=== PATIENT | female | born 1980 | race Hispanic/Latino ===

== ENCOUNTER 2018-07-27 08:41 | Inpatient (IN) | payer BC, MEDICAID ==
[2018-07-27] MEDS ORDERED: SUBLIMAZE IV PRN (09:16)
--- NOTE | 2018-07-27 09:32 | History and Physical Report ---
History of Present Illness Date of examination: 07/27/18 (pt presents for IOL due to IUGR @ 39 weeks) Date of admission: 07/27/18 08:43 History of present illness: EDC Confirmation: 08/01/2018 Gestational Age: 12 1/7 weeks Past History : 4 Term Births: 3 Living Children: 3 Para: 3 Mult. Births: 0 Prev : 0 Aborta: 0 Elect. Ab: 0 Spont. Ab: 0 Ectopics: 0 # 1 Delivery date: 12/13/2004 Weeks Gestation: 39 labor: no Delivery type: Hours of labor: >20 Anesthesia type: epidural Delivery location: [facility] Infant Sex: Female weight: 6-4 Name: Alyssa Comments: PPH after she went home; blood transfusion # 2 Delivery date: 11/13/2010 Weeks Gestation: 40 Delivery type: Vaginal Hours of labor: >30 Anesthesia type: epidural Delivery location: [facility] Sex: male weight: 6.63 Name: Misael Comments: none # 3 Delivery date: 02/15/2013 Weeks Gestation: 39+4 Delivery type: Vaginal Anesthesia type: epidural Delivery location: [facility] Infant Sex: female Comments: IUGR, oligohydramnios, ?partial abruption Risk Factors: Smoked Tobacco Use: Current every day smoker Counseled to quit/cut down: yes Drug use: no HIV high-risk behavior: low risk Alcohol use: no Seatbelt use: 100 % Dietary Counseling: pn yes PAP Smear History: Date of Last PAP Smear: 01/03/2013 Results: abnormal Past Medical History: Reviewed history from 06/28/2012 and no changes required: Negative Past Medical History Blood Transfusion after first delivery Past Surgical History: Reviewed history from 03/20/2010 and no changes required: negative Past Medical History Blood Transfusions: yes Abnormal PAP: negative KRISTIN Exposure: negative Infertility: negative Uterine Anomaly: negative Uterine Surgery (not C/S): negative Other Gynecologic Problems: negative Social Hx: Patient is Infection History Hx of STD: none HIV Risk Eval: low risk Hepatitis B Risk Eval: low risk Personal hx. of genital herpes: no Partner hx. of genital herpes: no Rash, Viral, or Febrile illness since last LMP? no Varicella/Chicken Pox Status: Unknown TB Risk: no Genetic History ADVANCED MATERNAL AGE Congenital Heart Defect: Mom: no Dad: no Monalisa Disease: Mom: no Dad: no Thalassemia Mom: no Dad: no Neural Tube Defect Mom: no Dad: no Down's Syndrome Mom: no Dad: no Thor-Sachs Mom: no Dad: no Sickle Cell Disease/Trait Mom: no Dad: no Hemophilia Mom: no Dad: no Muscular Dystrophy Mom: no Dad: no Cystic Fibrosis Mom: no Dad: no Jeir Chorea Mom: no Dad: no Mental Retardation Mom: no Dad: no Fragile X Mom: no Dad: no Other Genetic/Chromosomal Disorder Mom: no Dad: no Child w/other defect Mom: no Dad: no Other: FOB neices have [employer] Enviromental Exposures Xray Exposure: no Medication, drug, or alcohol use since LMP: no Chemical/Other Exposure: no Exposure to Cat Liter: no Hx of Parvovirus (Fifth Disease): no Active Medications (reviewed today): DEPO-PROVERA 150 MG/ML INTRAMUSCULAR SUSPENSION (MEDROXYPROGESTERONE ACETATE) 1 inj x every 12 weeks DEPO-PROVERA 150 MG/ML INTRAMUSCULAR SUSPENSION (MEDROXYPROGESTERONE ACETATE) 1 inj x every 12 weeks DEPO PROVERA INJ () Current Allergies (reviewed today): * NKDA (Critical) Past History - Obstetrical History Expected Date of Delivery: 08/01/18 Actual Gestation: 39 Week(s) 2 Day(s) : 4 Para: 3 Hx # Term Pregnancies: 3 Number of Pregnancies: 0 Spontaneous Abortions: 0 Induced : 0 Number of Living Children: 3 Medications and Allergies Allergies Allergy/AdvReac Type Severity Reaction Status Date / Time No Known Allergies Allergy Unverified 07/27/18 09:56 Active Meds: Active Medications Ephedrine Sulfate (Ephedrine Sulfate) 10 mg IV Q2M PRN PRN Reason: Hypotension Fentanyl (Sublimaze) 100 mcg IV Q2H PRN PRN Reason: Labor Pain Lactated Ringer's (Lactated Ringers) 1,000 mls @ 125 mls/hr IV DIRECT BRAYDEN Oxytocin/Sodium Chloride (Pitocin/Ns 20 Unit/1000ml Drip) 20 units in 1,000 mls @ 125 mls/hr IV DIRECT BRAYDEN Oxytocin/Sodium Chloride (Pitocin/Ns 30 Unit/500ml) 30 units in 500 mls @ 4 mls /hr IV Q30MIN BRAYDEN; Protocol Lidocaine (Xylocaine 2%) 20 ml INFILTRATI ONCE ONE Stop: 07/27/18 09:17 Mineral Oil (Mineral Oil) 30 ml PO QHS PRN PRN Reason: Constipation Ondansetron HCl (Zofran) 4 mg IV Q8H PRN PRN Reason: Nausea And Vomiting Terbutaline Sulfate (Brethine) 0.25 mg SUB-Q ONCE PRN PRN Reason: Hyperstimulation/Hypertonicity - Vital Signs Vital signs: Vital Signs Pulse Pulse Ox 66 98 07/27/18 09:00 07/27/18 09:00 Temp Pulse Resp BP Pulse Ox 68 117/63 98 07/27/18 09:15 07/27/18 09:15 07/27/18 09:15 - Physical Exam Breasts: Positive: deferred Cardiovascular: Regular rate, Normal S1, Normal S2 Lungs: Positive: Normal air movement Abdomen: Positive: normal appearance, soft, normal bowel sounds. Negative: distention, tenderness Genitourinary (Female): Positive: normal external genitalia Vulva: both: normal Vagina: Positive: normal moisture. Negative: discharge Cervix: Negative: lesion, discharge Uterus: Positive: normal size, normal contour Adnexa: both: normal Anus/Rectum: Positive: normal perianal skin, heme negative. Negative: rectal mass, hemorrhoids Extremities: Positive: normal Deep Tendon Reflex Grade: Normal +2 - Obstetrical FHR: category 1 Uterine Contraction Monitor Mode: External Cervical Dilatation: 3 (per RN exam) Cervical Effacement Percentage: 50 station: -3 Uterine Contraction Pattern: Irregular Uterine Contraction Intensity: Mild Results Result Diagrams: 07/27/18 09:15 All other labs normal. HBsAg Screen Negative Negative *1 RPR Non Reactive Non Reactive *2 Rubella Antibodies, IgG 7.46 index Immune >0.99 *3 Non-immune <0.90 Equivocal 0.90 - 0.99 Immune >0.99 ABO Grouping O Rh Factor Negative *5 Please note: Prior records for this patient's ABO / Rh type are not available for additional verification. Antibody Screen Negative Negative *6 WBC [H] 13.7 x10E3/uL 3.4-10.8 *7 RBC [L] 3.54 x10E6/uL 3.77-5.28 *8 Hemoglobin [L] 10.8 g/dL 11.1-15.9 *9 Hematocrit [L] 31.2 % 34.0-46.6 *10 MCV 88 fL 79-97 *11 MCH 30.5 pg 26.6-33.0 *12 MCHC 34.6 g/dL 31.5-35.7 *13 RDW 13.4 % 12.3-15.4 *14 Platelets 356 x10E3/uL 150-379 *15 Neutrophils 79 % Not Estab. *16 Lymphs 16 % Not Estab. *17 Monocytes 4 % Not Estab. *18 Eos 1 % Not Estab. *19 Basos 0 % Not Estab. *20 ! Immature Cells <No Reported Value> *21 Neutrophils (Absolute) [H] 10.7 x10E3/uL 1.4-7.0 *22 Lymphs (Absolute) 2.2 x10E3/uL 0.7-3.1 *23 Monocytes(Absolute) 0.6 x10E3/uL 0.1-0.9 *24 Eos (Absolute) 0.1 x10E3/uL 0.0-0.4 *25 Baso (Absolute) 0.0 x10E3/uL 0.0-0.2 *26 ! Immature Granulocytes 0 % Not Estab. *27 ! Immature Grans (Abs) 0.0 x10E3/uL 0.0-0.1 *28 ! NRBC <No Reported Value> *29 Hematology Comments: <No Reported Value> *30 Tests: (2) SMN1 Copy Number Analysis ([id number]) ! Genetic Counselor: Not applicable *31 ! Client Specimen ID: Not applicable *32 ! Specimen Type: SPRCS *33 Peripheral Blood Tests: (3) Panel 008820 ([id number]) HIV Screen 4th Generation wRfx Non Reactive Non Reactive *45 Tests: (4) HCV Ab w/Rflx to Verification ([id number]) ! HCV Ab <0.1 s/co ratio 0.0-0.9 *46 Tests: (5) Comment: ([id number]) ! Comment: SPRCS *47 Non reactive HCV antibody screen is consistent with no HCV infection, unless recent infection is suspected or other evidence exists to indicate HCV infection. Tests: (6) Urine Culture, Routine ([id number]) Urine Culture, Routine Final report *48 Tests: (7) Result ([id number]) ! Result 1 MUG *49 Mixed urogenital vic 10,000-25,000 colony forming units per mL Assessment and Plan 38yo @ 39 weeks for IOL as per AMFM due to IUGR GBS negative Orders in EMR
[2018-07-27 09:34] LABS: Hematocrit 33.2 % (30.3-42.9); Hemoglobin 11.5 gm/dl (10.1-14.3); Mean Corpuscular HGB Conc 35 % (30-34); Mean Corpuscular Hemoglobin 32 pg (28-32); Mean Corpuscular Volume 93 fl (79-97); Platelet Count 196 K/mm3 (140-440); Red Blood Count 3.57 M/mm3 (3.65-5.03); Red Cell Distribution Width 13.3 % (13.2-15.2)
[2018-07-27] MEDS: LACTATED RINGERS 1,000 ML IV SCH ×3 (10:00→14:40)
[2018-07-27] MEDS ORDERED: PITOCin/NS 20 UNIT/1000ML DRIP 20 UNITS/1,000 ML BAG IV SCH (10:00)
[2018-07-27] MEDS ORDERED: BRETHINE SUB-Q PRN (10:30)
[2018-07-27] MEDS ORDERED: ZOFRAN IV PRN (10:30)
[2018-07-27] MEDS: PITOCin/NS 30 UNIT/500ML 30 UNITS/500 ML BAG IV SCH ×4 (10:30→12:42)
[2018-07-27] MEDS ORDERED: XYLOCAINE 2% INFILTRATI ONE (10:30)
--- NOTE | 2018-07-27 11:45 | Progress Note ---
Assessment and Plan Bolus for epidural Sve 4,70,-1 ROM clear Internals placed Re-eval after epidural Subjective - Subjective Date of service: 07/27/18 (pt asking for epidural) Interval history: EDC Confirmation: 08/01/2018 Gestational Age: 12 1/7 weeks Past History : 4 Term Births: 3 Living Children: 3 Para: 3 Mult. Births: 0 Prev : 0 Aborta: 0 Elect. Ab: 0 Spont. Ab: 0 Ectopics: 0 # 1 Delivery date: 12/13/2004 Weeks Gestation: 39 labor: no Delivery type: Hours of labor: >20 Anesthesia type: epidural Delivery location: [facility] Sex: Female weight: 6-4 Name: Alyssa Comments: PPH after she went home; blood transfusion # 2 Delivery date: 11/13/2010 Weeks Gestation: 40 Delivery type: Vaginal Hours of labor: >30 Anesthesia type: epidural Delivery location: [facility] Infant Sex: male weight: 6.63 Name: Misael Comments: none # 3 Delivery date: 02/15/2013 Weeks Gestation: 39+4 Delivery type: Vaginal Anesthesia type: epidural Delivery location: [facility] Sex: female Comments: IUGR, oligohydramnios, ?partial abruption Risk Factors: Smoked Tobacco Use: Current every day smoker Counseled to quit/cut down: yes Drug use: no HIV high-risk behavior: low risk Alcohol use: no Seatbelt use: 100 % Dietary Counseling: pn yes PAP Smear History: Date of Last PAP Smear: 01/03/2013 Results: abnormal Past Medical History: Reviewed history from 06/28/2012 and no changes required: Negative Past Medical History Blood Transfusion after first delivery Past Surgical History: Reviewed history from 03/20/2010 and no changes required: negative Past Medical History Blood Transfusions: yes Abnormal PAP: negative KRISTIN Exposure: negative Infertility: negative Uterine Anomaly: negative Uterine Surgery (not C/S): negative Other Gynecologic Problems: negative Social Hx: Patient is Infection History Hx of STD: none HIV Risk Eval: low risk Hepatitis B Risk Eval: low risk Personal hx. of genital herpes: no Partner hx. of genital herpes: no Rash, Viral, or Febrile illness since last LMP? no Varicella/Chicken Pox Status: Unknown TB Risk: no Genetic History ADVANCED MATERNAL AGE Congenital Heart Defect: Mom: no Dad: no Monalisa Disease: Mom: no Dad: no Thalassemia Mom: no Dad: no Neural Tube Defect Mom: no Dad: no Down's Syndrome Mom: no Dad: no Thor-Sachs Mom: no Dad: no Sickle Cell Disease/Trait Mom: no Dad: no Hemophilia Mom: no Dad: no Muscular Dystrophy Mom: no Dad: no Cystic Fibrosis Mom: no Dad: no Floyd Chorea Mom: no Dad: no Mental Retardation Mom: no Dad: no Fragile X Mom: no Dad: no Other Genetic/Chromosomal Disorder Mom: no Dad: no Child w/other defect Mom: no Dad: no Other: FOB neices have Von [employer] Enviromental Exposures Xray Exposure: no Medication, drug, or alcohol use since LMP: no Chemical/Other Exposure: no Exposure to Cat Liter: no Hx of Parvovirus (Fifth Disease): no Active Medications (reviewed today): DEPO-PROVERA 150 MG/ML INTRAMUSCULAR SUSPENSION (MEDROXYPROGESTERONE ACETATE) 1 inj x every 12 weeks DEPO-PROVERA 150 MG/ML INTRAMUSCULAR SUSPENSION (MEDROXYPROGESTERONE ACETATE) 1 inj x every 12 weeks DEPO PROVERA INJ () Current Allergies (reviewed today): * NKDA (Critical) Patient reports: movement normal Objective - Vital Signs Vital Signs: Vital Signs - 12hr 07/27/18 07/27/18 07/27/18 09:00 09:01 09:05 Pulse Rate 66 64 71 Blood Pressure 121/69 O2 Sat by Pulse 98 97 Oximetry 07/27/18 07/27/18 07/27/18 09:11 09:15 09:20 Pulse Rate 77 68 67 Blood Pressure 117/63 O2 Sat by Pulse 86 98 98 Oximetry 07/27/18 07/27/18 07/27/18 09:25 09:30 09:31 Pulse Rate 68 65 68 Blood Pressure O2 Sat by Pulse 97 99 94 Oximetry 07/27/18 07/27/18 07/27/18 09:32 09:35 09:40 Pulse Rate 67 65 72 Blood Pressure 118/56 O2 Sat by Pulse 97 96 Oximetry 07/27/18 07/27/18 07/27/18 09:45 09:50 09:55 Pulse Rate 68 66 66 Blood Pressure 118/59 O2 Sat by Pulse 95 96 95 Oximetry 07/27/18 07/27/18 07/27/18 10:00 10:01 10:05 Pulse Rate 73 68 66 Blood Pressure 120/65 O2 Sat by Pulse 97 95 Oximetry 07/27/18 07/27/18 07/27/18 10:10 10:15 10:30 Pulse Rate 74 76 63 Blood Pressure 115/70 118/62 O2 Sat by Pulse 97 Oximetry 07/27/18 07/27/18 07/27/18 10:32 10:37 10:42 Pulse Rate 66 61 65 Blood Pressure O2 Sat by Pulse 98 99 96 Oximetry 07/27/18 07/27/18 07/27/18 10:46 10:47 10:52 Pulse Rate 59 L 61 67 Blood Pressure 118/61 O2 Sat by Pulse 89 95 96 Oximetry 07/27/18 07/27/18 07/27/18 10:57 11:07 11:12 Pulse Rate 64 62 64 Blood Pressure O2 Sat by Pulse 95 97 97 Oximetry 07/27/18 07/27/18 07/27/18 11:15 11:17 11:22 Pulse Rate 64 62 61 Blood Pressure 112/71 O2 Sat by Pulse 97 97 Oximetry 07/27/18 07/27/18 07/27/18 11:27 11:31 11:32 Pulse Rate 60 61 61 Blood Pressure 123/73 O2 Sat by Pulse 98 98 Oximetry 07/27/18 11:37 Pulse Rate 64 Blood Pressure O2 Sat by Pulse 98 Oximetry - Exam Breasts: normal Cardiovascular: Regular rate Lungs: Normal air movement Abdomen: Present: normal appearance, soft. Absent: distention, tenderness Uterus: Present: normal FHR: auscultation normal, category 1 Uterine Contraction Monitor Mode: Internal Cervical Dilatation: 4 (ISE/IUPC) Cervical Effacement Percentage: 70 (ROM clear) station: -1 Uterine Contraction Pattern: Regular Uterine Contraction Intensity: Moderate Extremities: normal - Labs Labs: Abnormal Labs 07/27/18 09:15 WBC 13.1 H RBC 3.57 L MCHC 35 H Laboratory Results - last 24 hr 07/27/18 07/27/18 09:15 09:15 WBC 13.1 H RBC 3.57 L Hgb 11.5 Hct 33.2 MCV 93 MCH 32 MCHC 35 H RDW 13.3 Plt Count 196 Blood Type O NEGATIVE Antibody Screen Positive Antibody Identification Anti-D (Passively Aquired)
[2018-07-27] MEDS ORDERED: NARCAN 2 MG/2 ML IV PRN (11:51)
--- NOTE | 2018-07-27 11:51 | Anesthesia Consultation ---
Anesthesia Consult and Med Hx Date of service: 07/27/18 - Airway Anesthetic Teeth Evaluation: Good ROM Head & Neck: Adequate Mental/Hyoid Distance: Adequate Mallampati Class: Class II Intubation Access Assessment: Good - Pulmonary Exam CTA: Yes - Cardiac Exam Cardiac Exam: No Murmur - Pre-Operative Health Status ASA Pre-Surgery Classification: ASA2 Proposed Anesthetic Plan: Epidural - Pulmonary Hx Asthma: No COPD: No Hx Pneumonia: No - Cardiovascular System Hx Hypertension: No - Central Nervous System Hx Seizures: No Hx Psychiatric Problems: No - Endocrine Hx Renal Disease: No Hx End Stage Renal Disease: No Hx Hypothyroidism: No Hx Hyperthyroidism: No - Hematic Hx Anemia: No Hx Sickle Cell Disease: No - Other Systems Hx Alcohol Use: No
[2018-07-27] MEDS ORDERED: fentaNYL-BUPIV 2 MCG/ML-0.125% 200 MCG/100 ML BAG EPIDURAL SCH (12:00)
--- NOTE | 2018-07-27 15:35 | Progress Note ---
Assessment and Plan SVE 8,100,0 Pit @ 20mu Anticipate delivery Subjective - Subjective Date of service: 07/27/18 (pt w/o complaint) Interval history: EDC Confirmation: 08/01/2018 Gestational Age: 12 1/7 weeks Past History : 4 Term Births: 3 Living Children: 3 Para: 3 Mult. Births: 0 Prev : 0 Aborta: 0 Elect. Ab: 0 Spont. Ab: 0 Ectopics: 0 # 1 Delivery date: 12/13/2004 Weeks Gestation: 39 labor: no Delivery type: Hours of labor: >20 Anesthesia type: epidural Delivery location: [facility] Infant Sex: Female weight: 6-4 Name: Alyssa Comments: PPH after she went home; blood transfusion # 2 Delivery date: 11/13/2010 Weeks Gestation: 40 Delivery type: Vaginal Hours of labor: >30 Anesthesia type: epidural Delivery location: [facility] Infant Sex: male weight: 6.63 Name: Misael Comments: none # 3 Delivery date: 02/15/2013 Weeks Gestation: 39+4 Delivery type: Vaginal Anesthesia type: epidural Delivery location: [facility] Sex: female Comments: IUGR, oligohydramnios, ?partial abruption Risk Factors: Smoked Tobacco Use: Current every day smoker Counseled to quit/cut down: yes Drug use: no HIV high-risk behavior: low risk Alcohol use: no Seatbelt use: 100 % Dietary Counseling: pn yes PAP Smear History: Date of Last PAP Smear: 01/03/2013 Results: abnormal Past Medical History: Reviewed history from 06/28/2012 and no changes required: Negative Past Medical History Blood Transfusion after first delivery Past Surgical History: Reviewed history from 03/20/2010 and no changes required: negative Past Medical History Blood Transfusions: yes Abnormal PAP: negative KRISTIN Exposure: negative Infertility: negative Uterine Anomaly: negative Uterine Surgery (not C/S): negative Other Gynecologic Problems: negative Social Hx: Patient is Infection History Hx of STD: none HIV Risk Eval: low risk Hepatitis B Risk Eval: low risk Personal hx. of genital herpes: no Partner hx. of genital herpes: no Rash, Viral, or Febrile illness since last LMP? no Varicella/Chicken Pox Status: Unknown TB Risk: no Genetic History ADVANCED MATERNAL AGE Congenital Heart Defect: Mom: no Dad: no Monalisa Disease: Mom: no Dad: no Thalassemia Mom: no Dad: no Neural Tube Defect Mom: no Dad: no Down's Syndrome Mom: no Dad: no Thor-Sachs Mom: no Dad: no Sickle Cell Disease/Trait Mom: no Dad: no Hemophilia Mom: no Dad: no Muscular Dystrophy Mom: no Dad: no Cystic Fibrosis Mom: no Dad: no Jeri Chorea Mom: no Dad: no Mental Retardation Mom: no Dad: no Fragile X Mom: no Dad: no Other Genetic/Chromosomal Disorder Mom: no Dad: no Child w/other defect Mom: no Dad: no Other: FOB neices have [employer] Enviromental Exposures Xray Exposure: no Medication, drug, or alcohol use since LMP: no Chemical/Other Exposure: no Exposure to Cat Liter: no Hx of Parvovirus (Fifth Disease): no Active Medications (reviewed today): DEPO-PROVERA 150 MG/ML INTRAMUSCULAR SUSPENSION (MEDROXYPROGESTERONE ACETATE) 1 inj x every 12 weeks DEPO-PROVERA 150 MG/ML INTRAMUSCULAR SUSPENSION (MEDROXYPROGESTERONE ACETATE) 1 inj x every 12 weeks DEPO PROVERA INJ () Current Allergies (reviewed today): * NKDA (Critical) Patient reports: movement normal Objective - Vital Signs Vital Signs: Vital Signs - 12hr 07/27/18 07/27/18 07/27/18 09:00 09:01 09:05 Temperature 98.4 F Pulse Rate 66 64 71 Respiratory 18 Rate Blood Pressure 121/69 O2 Sat by Pulse 98 97 Oximetry 07/27/18 07/27/18 07/27/18 09:11 09:15 09:20 Temperature Pulse Rate 77 68 67 Respiratory Rate Blood Pressure 117/63 O2 Sat by Pulse 86 98 98 Oximetry 07/27/18 07/27/18 07/27/18 09:25 09:30 09:31 Temperature Pulse Rate 68 65 68 Respiratory Rate Blood Pressure O2 Sat by Pulse 97 99 94 Oximetry 07/27/18 07/27/18 07/27/18 09:32 09:35 09:40 Temperature Pulse Rate 67 65 72 Respiratory Rate Blood Pressure 118/56 O2 Sat by Pulse 97 96 Oximetry 07/27/18 07/27/18 07/27/18 09:45 09:50 09:55 Temperature Pulse Rate 68 66 66 Respiratory Rate Blood Pressure 118/59 O2 Sat by Pulse 95 96 95 Oximetry 07/27/18 07/27/18 07/27/18 10:00 10:01 10:05 Temperature Pulse Rate 73 68 66 Respiratory Rate Blood Pressure 120/65 O2 Sat by Pulse 97 95 Oximetry 07/27/18 07/27/18 07/27/18 10:10 10:15 10:30 Temperature Pulse Rate 74 76 63 Respiratory Rate Blood Pressure 115/70 118/62 O2 Sat by Pulse 97 Oximetry 07/27/18 07/27/18 07/27/18 10:32 10:37 10:42 Temperature Pulse Rate 66 61 65 Respiratory Rate Blood Pressure O2 Sat by Pulse 98 99 96 Oximetry 07/27/18 07/27/18 07/27/18 10:46 10:47 10:52 Temperature Pulse Rate 59 L 61 67 Respiratory Rate Blood Pressure 118/61 O2 Sat by Pulse 89 95 96 Oximetry 07/27/18 07/27/18 07/27/18 10:57 11:07 11:12 Temperature Pulse Rate 64 62 64 Respiratory Rate Blood Pressure O2 Sat by Pulse 95 97 97 Oximetry 07/27/18 07/27/18 07/27/18 11:15 11:17 11:22 Temperature Pulse Rate 64 62 61 Respiratory Rate Blood Pressure 112/71 O2 Sat by Pulse 97 97 Oximetry 07/27/18 07/27/18 07/27/18 11:27 11:31 11:32 Temperature Pulse Rate 60 61 61 Respiratory Rate Blood Pressure 123/73 O2 Sat by Pulse 98 98 Oximetry 07/27/18 07/27/18 07/27/18 11:37 11:42 11:45 Temperature Pulse Rate 64 61 61 Respiratory Rate Blood Pressure 128/80 O2 Sat by Pulse 98 97 Oximetry 07/27/18 07/27/18 07/27/18 11:47 11:52 11:57 Temperature Pulse Rate 55 L 56 L 63 Respiratory Rate Blood Pressure O2 Sat by Pulse 98 99 97 Oximetry 07/27/18 07/27/18 07/27/18 11:59 12:00 12:01 Temperature 98.6 F Pulse Rate 67 68 Respiratory 18 Rate Blood Pressure 131/74 O2 Sat by Pulse 76 L Oximetry 07/27/18 07/27/18 07/27/18 12:02 12:03 12:05 Temperature Pulse Rate 64 64 67 Respiratory Rate Blood Pressure 137/76 132/72 O2 Sat by Pulse 99 Oximetry 07/27/18 07/27/18 07/27/18 12:07 12:09 12:11 Temperature Pulse Rate 70 70 69 Respiratory Rate Blood Pressure 126/68 125/68 128/68 O2 Sat by Pulse 98 83 L Oximetry 07/27/18 07/27/18 07/27/18 12:12 12:13 12:14 Temperature Pulse Rate 69 68 69 Respiratory Rate Blood Pressure 106/66 109/64 O2 Sat by Pulse 98 Oximetry 07/27/18 07/27/18 07/27/18 12:17 12:22 12:23 Temperature Pulse Rate 77 73 73 Respiratory Rate Blood Pressure 103/62 107/57 O2 Sat by Pulse 98 96 Oximetry 07/27/18 07/27/18 07/27/18 12:27 12:32 12:37 Temperature Pulse Rate 71 72 70 Respiratory Rate Blood Pressure 108/56 109/61 O2 Sat by Pulse 95 96 96 Oximetry 07/27/18 07/27/18 07/27/18 12:38 12:42 12:43 Temperature Pulse Rate 70 71 71 Respiratory Rate Blood Pressure 108/62 107/61 O2 Sat by Pulse 96 Oximetry 07/27/18 07/27/18 07/27/18 12:47 12:52 12:53 Temperature Pulse Rate 77 78 71 Respiratory Rate Blood Pressure 105/62 109/62 O2 Sat by Pulse 95 96 Oximetry 07/27/18 07/27/18 07/27/18 12:57 13:02 13:04 Temperature Pulse Rate 75 67 75 Respiratory Rate Blood Pressure 104/58 O2 Sat by Pulse 97 98 82 L Oximetry 07/27/18 07/27/18 07/27/18 13:07 13:12 13:13 Temperature Pulse Rate 71 77 102 H Respiratory Rate Blood Pressure 166/127 O2 Sat by Pulse 95 96 Oximetry 07/27/18 07/27/18 07/27/18 13:17 13:18 13:22 Temperature Pulse Rate 63 66 68 Respiratory Rate Blood Pressure 105/53 96/58 O2 Sat by Pulse 96 96 Oximetry 07/27/18 07/27/18 07/27/18 13:27 13:28 13:32 Temperature Pulse Rate 62 64 69 Respiratory Rate Blood Pressure 102/62 O2 Sat by Pulse 97 98 Oximetry 07/27/18 07/27/18 07/27/18 13:33 13:37 13:38 Temperature Pulse Rate 69 64 63 Respiratory Rate Blood Pressure 104/58 100/55 O2 Sat by Pulse 97 Oximetry 07/27/18 07/27/18 07/27/18 13:42 13:47 13:49 Temperature Pulse Rate 65 65 64 Respiratory Rate Blood Pressure 99/55 111/54 O2 Sat by Pulse 97 97 Oximetry 07/27/18 07/27/18 07/27/18 13:52 13:54 13:57 Temperature Pulse Rate 65 61 66 Respiratory Rate Blood Pressure 103/51 O2 Sat by Pulse 97 97 Oximetry 07/27/18 07/27/18 07/27/18 13:58 14:02 14:03 Temperature Pulse Rate 63 61 62 Respiratory Rate Blood Pressure 101/58 106/56 O2 Sat by Pulse 97 Oximetry 07/27/18 07/27/18 07/27/18 14:07 14:09 14:12 Temperature Pulse Rate 59 L 61 73 Respiratory Rate Blood Pressure 99/53 O2 Sat by Pulse 98 98 Oximetry 07/27/18 07/27/18 07/27/18 14:14 14:17 14:22 Temperature Pulse Rate 63 63 63 Respiratory Rate Blood Pressure 109/54 100/58 O2 Sat by Pulse 97 98 Oximetry 07/27/18 07/27/18 07/27/18 14:24 14:27 14:29 Temperature Pulse Rate 62 60 62 Respiratory Rate Blood Pressure 101/62 103/53 O2 Sat by Pulse 97 Oximetry 07/27/18 07/27/18 07/27/18 14:32 14:37 14:38 Temperature Pulse Rate 61 58 L 57 L Respiratory Rate Blood Pressure 108/57 101/57 O2 Sat by Pulse 98 97 Oximetry 07/27/18 07/27/18 07/27/18 14:42 14:44 14:47 Temperature Pulse Rate 59 L 61 59 L Respiratory Rate Blood Pressure 89/51 O2 Sat by Pulse 96 96 Oximetry 07/27/18 07/27/18 07/27/18 14:49 14:52 14:55 Temperature Pulse Rate 63 60 63 Respiratory Rate Blood Pressure 116/86 100/53 O2 Sat by Pulse 97 Oximetry 07/27/18 07/27/18 07/27/18 14:57 14:58 15:02 Temperature Pulse Rate 59 L 59 L 60 Respiratory Rate Blood Pressure 98/55 O2 Sat by Pulse 98 97 Oximetry 07/27/18 07/27/18 07/27/18 15:03 15:07 15:08 Temperature Pulse Rate 59 L 57 L 57 L Respiratory Rate Blood Pressure 87/54 98/55 O2 Sat by Pulse 97 Oximetry 07/27/18 07/27/18 07/27/18 15:12 15:14 15:17 Temperature Pulse Rate 60 57 L 56 L Respiratory Rate Blood Pressure 106/57 O2 Sat by Pulse 98 97 Oximetry 07/27/18 07/27/18 07/27/18 15:18 15:22 15:23 Temperature Pulse Rate 58 L 56 L 55 L Respiratory Rate Blood Pressure 104/58 109/55 O2 Sat by Pulse 97 Oximetry 07/27/18 07/27/18 07/27/18 15:27 15:28 15:32 Temperature Pulse Rate 58 L 60 60 Respiratory Rate Blood Pressure 103/57 O2 Sat by Pulse 97 97 Oximetry 07/27/18 15:33 Temperature Pulse Rate 63 Respiratory Rate Blood Pressure 107/62 O2 Sat by Pulse Oximetry - Exam Breasts: deferred Cardiovascular: Regular rate Lungs: Normal air movement Abdomen: Present: normal appearance, soft. Absent: distention, tenderness Uterus: Present: normal FHR: auscultation normal, category 1 Uterine Contraction Monitor Mode: Internal Cervical Dilatation: 8 Cervical Effacement Percentage: 100 station: 0 Uterine Contraction Pattern: Regular Uterine Tone Measurement Phase: Resting Uterine Contraction Intensity: Moderate Extremities: normal Deep Tendon Reflex Grade: Normal +2 - Labs Labs: Abnormal Labs 07/27/18 09:15 WBC 13.1 H RBC 3.57 L MCHC 35 H Laboratory Results - last 24 hr 07/27/18 07/27/18 07/27/18 09:15 09:15 09:15 WBC 13.1 H RBC 3.57 L Hgb 11.5 Hct 33.2 MCV 93 MCH 32 MCHC 35 H RDW 13.3 Plt Count 196 RPR Nonreactive Blood Type O NEGATIVE Antibody Screen Positive Antibody Identification Anti-D (Passively Aquired)
--- NOTE | 2018-07-27 17:00 | Procedure Note ---
OB Delivery Note - Delivery Date of Delivery: 07/27/18 Wood Grinder: VINEET CHRISTIANSON Estimated blood loss: 300cc - Vaginal Delivery presentation: vertex Delivery position: OA Intrapartum events: other(please specify) (IUGR) Delivery induction: oxytocin Delivery augmentation: pitocin Delivery monitor: internal FHT, internal uterine Route of delivery: Delivery placenta: expressed, manual Delivery cord: 3 umbilical vessels Episiotomy: none Delivery laceration: none Anesthesia: epidural Delivery comments: live born male over intact perineum Skin to skin with mom. Cord blood obtained Placenta and membrane del manual extraction complete and intact, 3 vessel cord. Sent to pathology. Pitocin IVFs 8/9, EBL 300, Wgt 6-10 Mom and baby remain LDR stable - A at 1 minute: 8 at 5 minutes: 9 Gender: Male (wgt 6-10)
[2018-07-27] MEDS ORDERED: TYLENOL PO PRN (17:02)
[2018-07-27] MEDS ORDERED: LANSINOH TP PRN (17:02)
[2018-07-27] MEDS ORDERED: DULCOLAX PR PRN (17:02)
[2018-07-27] MEDS ORDERED: PHENERGAN PO PRN (17:02)
[2018-07-27] MEDS ORDERED: BENADRYL PO PRN (17:02)
[2018-07-27] MEDS ORDERED: TUCKS PAD TP PRN (17:02)
[2018-07-27] MEDS ORDERED: MILK OF MAGNESIA PO PRN (17:02)
[2018-07-27] MEDS ORDERED: SODIUM CHLORIDE FLUSH SYRINGE 10 ML IV NR (18:00)
[2018-07-27] MEDS: MOTRIN PO SCH (20:05)
[2018-07-27] MEDS ORDERED: MINERAL OIL PO PRN (22:00)
[2018-07-28] MEDS: MOTRIN PO SCH ×2 (00:06→05:25)
[2018-07-28 05:51] LABS: Hematocrit 23.8 % (30.3-42.9); Hemoglobin 8.3 gm/dl (10.1-14.3)
--- NOTE | 2018-07-28 08:38 | Discharge Summary ---
Providers - Providers Date of Admission: 07/27/18 08:43 Date of discharge: 07/28/18 (desires d/c home) Attending physician: HOLLIE MCGOVERN Primary care physician: HOLLIE MCGOVERN Hospitalization Reason for admission: Induction Condition: Good Pertinent studies: post delivery H&H 8.3/23.8 (acute anemia d/t blood loss - asymptomatic.) Procedures: uncomplicated vaginal Hospital course: uncomplicated vaginal and course Disposition: - TO HOME OR SELFCARE - Discharge Diagnoses (1) Spontaneous vaginal delivery Status: Acute Core Measure Documentation - Palliative Care Palliative Care/ Comfort Measures: Not Applicable - Core Measures Any of the following diagnoses?: none Exam - Constitutional Vitals: Temp Pulse Resp BP Pulse Ox 97.4 F L 62 18 117/66 98 07/27/18 18:45 07/27/18 18:45 07/28/18 05:25 07/27/18 18:45 07/27/18 16:02 General appearance: Present: no acute distress, well-nourished - EENT Eyes: Present: PERRL ENT: hearing intact, clear oral mucosa - Neck Neck: Present: supple, normal ROM - Respiratory Respiratory effort: normal Respiratory: bilateral: CTA - Cardiovascular Heart Sounds: Present: S1 & S2. Absent: rub, click - Extremities Extremities: pulses symmetrical, No edema Peripheral Pulses: within normal limits - Abdominal General gastrointestinal: Present: soft, non-tender, non-distended, normal bowel sounds Female genitourinary: Present: normal - Integumentary Integumentary: Present: clear, warm, dry - Musculoskeletal Musculoskeletal: gait normal, strength equal bilaterally - Psychiatric Psychiatric: appropriate mood/affect, intact judgment & insight - Neurologic Neurologic: CNII-XII intact, moves all extremities - Additional findings Additional findings: , lochia scant, fundus firm, vssaf Plan Activity: no restrictions Diet: regular Follow up with: HOLLIE MCGOVERN MD [Primary Care Provider] - 7 Days (Congratulations! Please call [phone] to scheudle your son's circumcision in 1 week and your visit in 4 weeks. Bring EMLA cream to your son's appointment and await further teaching. Call for any questions or concerns.) Prescriptions: Ibuprofen [Motrin 800 MG tab] 800 mg PO TID PRN #30 tablet PRN Reason: Pain Lidocain2.5%/Prilocai2.5% [Emla] 5 gm TP PRN #1 tube
[2018-07-28 09:42] VITALS: BP 105/50
[2018-07-28] MEDS ORDERED: BOOSTRIX IM ONE (17:02)
[2018-07-28] MEDS ORDERED: M-M-R II VACCINE SUB-Q ONE (17:02)
== END 2018-07-28 17:50 | disposition home or self-care (01) | DRG 775 ==
LOC: TRG 08:41 → LD 08:43 → OB 18:38
PROVIDERS: ADMIT Obstetrics & Gynecology; ATTEND Obstetrics & Gynecology
PROC: 10E0XZZ Delivery of Products of Conception, External Approach (ICD-10-PCS; 2018-07-27)
PROC: 3E033VJ Introduction of Other Hormone into Peripheral Vein, Percutaneous Approach (ICD-10-PCS; 2018-07-27)
PROC: 3E0R3BZ Introduction of Anesthetic Agent into Spinal Canal, Percutaneous Approach (ICD-10-PCS; 2018-07-27)
PROC: 00HU33Z Insertion of Infusion Device into Spinal Canal, Percutaneous Approach (ICD-10-PCS; 2018-07-27)
PROC: 3E0234Z Introduction of Serum, Toxoid and Vaccine into Muscle, Percutaneous Approach (ICD-10-PCS; principal; 2018-07-28)
PROC: 3E0234Z Introduction of Serum, Toxoid and Vaccine into Muscle, Percutaneous Approach (ICD-10-PCS; 2018-07-28)
DX: O36.5930 Maternal care for other known or suspected poor fetal growth, third trimester, not applicable or unspecified (principal); D62 Acute posthemorrhagic anemia; O99.334 Smoking (tobacco) complicating childbirth; Z3A.39 39 weeks gestation of pregnancy; Z37.0 Single live birth; Z23 Encounter for immunization; F17.210 Nicotine dependence, cigarettes, uncomplicated; O90.81 Anemia of the puerperium
CPT/HCPCS: 36415; 85014; 85018; 85027; 85461; 86592; 86850; 86870; 86900; 86901; 88307; 90715; 99211; G0463; J2590; J2790; J7120